=== PATIENT | female | born 1985 ===

== ENCOUNTER 2023-05-15 13:05 | Outpatient (CLI) | payer OTHER | END 2023-05-15 13:06 | disposition home or self-care (01) | LOC: DI 13:05 | PROVIDERS: ATTEND Nurse Practitioner | DX: Z53.9 Procedure and treatment not carried out, unspecified reason (principal) ==

== ENCOUNTER 2023-05-26 07:39 | Outpatient (CLI) | payer OTHER ==
--- NOTE | 2023-05-26 10:26 | Ultrasound Report ---
PROCEDURE: Pelvic w/Transvaginal INDICATIONS: MENORRHAGIA TECHNIQUE: Real-time scanning was performed of the pelvic organs, with image documentation. Additional endovagi nal scanning was necessary due to incomplete visualization of the adnexal and endometrial structures by transabdominal scanning. COMPARISON: None. FINDINGS: Uterus: Uterus is retroverted and normal in size at 6.2 x 4.3 x 5.3 cm. The myometrium is heterogen eous. The endometrium measures 1 mm in combined thickness. Ovaries: The right ovary measures 3.7 x 2.2 x 2.1 cm, with a calculated ovarian volume of 8 cc. The left ovary measures 2.4 x 1.5 x 1.3 cm, with a calculated ovarian volume of 2 cc. The ovaries have a normal sonographic appearance. Less than 12 follicles can be seen in each ovary. No adnexal migdalia s are seen. No cystic lesions measuring greater than 3 cm. Other: No pathologic free abdominal or pelvic fluid. IMPRESSION: Unremarkable pelvic ultrasound. No findings to explain the patient's menorrhagia. Reviewed by: Mil Cruz on 05/26/2023 10:25 AM PDT Approved by: Mil Cruz on 05/26/2023 10:25 AM PDT Station ID: [id number]
== END 2023-05-26 07:40 | disposition home or self-care (01) ==
LOC: DI 07:39
PROVIDERS: ATTEND Nurse Practitioner
DX: N92.0 Excessive and frequent menstruation with regular cycle (principal)

== ENCOUNTER 2023-09-09 10:16 | Outpatient (CLI) | payer OTHER ==
--- NOTE | 2023-09-10 14:48 | Mammography Report ---
BILATERAL DIGITAL DIAGNOSTIC MAMMOGRAM 3D/2D WITH AXILLARY TAIL: 09/09/2023 CLINICAL: Intermittent bilateral breast pain. Comparison is made to exam dated: 06/28/2021 mammogram - [facility]. There are scattered areas of fibroglandular density in both breasts (category b / 25%-50% glandular t issue). No significant masses, calcifications, or other findings are seen in either breast. Of note, patient was asymptomatic at time of exam, therefore no BB marker or additional mammographic views were acquir ed. IMPRESSION: NEGATIVE No mammographic evidence of malignancy. Of note, patient did not have clinical symptoms at time of e xam. Recommend routine screening mammogram starting at age 40. Diffuse, non-focal symptoms, such as pain or fullness are typically benign and do not require special ized diagnostic imaging. Clinical follow-up is recommended, and further management of these symptoms should be based on the results of clinical evaluation. If diffuse symptoms persist or become more foc al in nature, further clinical evaluation should be considered. Findings and recommendations were conveyed to the patient during today's evaluation. Based on the Tyrer Cuzick model (a risk assessment model) the patient's lifetime risk is 12.6% and he r 10 year risk is 1.2%. According to the ACR, ACS, and NCCN guidelines, an annual breast MRI exam sin ng with mammogram is recommended if the patients lifetime risk is 20% or greater. This exam was interpreted at Station ID: [id number]. NOTE: For mammograms, a report in lay terms will be sent to the patient. Approximately 15% of breast malignancies will not be visualized mammographically. In the management of a palpable breast mass, a negative mammogram must not discourage biopsy of a clinically suspicious lesion. Electronically Signed By: Sivan Tellez M.D., PH.D eb/:09/09/2023 11:24:15 letter sent: No_Letter ACR BI-RADS Category 1: Negative 3341F PARENCHYMAL PATTERN: (A) - The breast(s) demonstrate(s) scattered fibroglandular densities. BI-RADS CATEGORY: (1) - 1 Unspecified - other recall n/a LATERALITY: (B)
== END 2023-09-09 10:17 | disposition home or self-care (01) ==
LOC: DI 10:16
PROVIDERS: ATTEND Nurse Practitioner
DX: R59.0 Localized enlarged lymph nodes (principal); M79.621 Pain in right upper arm; R92.323 Mammographic fibroglandular density, bilateral breasts